=== PATIENT | female | born 1980 ===

== ENCOUNTER 2017-08-26 07:04 | Day surgery (SDC) | payer OTHER ==
[2016-07-11 21:42] VITALS: BMI 24.7
[2017-08-26] MEDS ORDERED: ceFAZolin IV 1 gm in Dextrose 1 GM/50 ML BAG IVPB ONE (07:17)
[2017-08-26] MEDS ORDERED: Morphine 10 mg/5 ml Oral Soln PO PRN (08:41)
[2017-08-26] MEDS ORDERED: Dextrose 5%/0.45% NS 1,000 ML IV SCH (08:45)
[2017-08-26] MEDS ORDERED: Succinylcholine Chloride 20 mg/ml Syr (5 ml) IV ONE (09:45)
[2017-08-26] MEDS ORDERED: Propofol 10 mg/ml Inj (20 ML) ONE (09:45)
[2017-08-26] MEDS ORDERED: HYDROmorphone 0.5 mg/0.5 ml ISec IVP PRN (10:12)
[2017-08-26] MEDS ORDERED: Lactated Ringer's 1,000 ML IV SCH (10:15)
[2017-08-26 12:16] VITALS: RESP 16; TEMP 97.3
[2017-08-26 13:13] VITALS: BP 108/68; PULSE 94; O2SAT 97
--- NOTE | 2017-09-02 23:09 | OP ---
PROCEDURE DATE: 08/26/2017 PREOPERATIVE DIAGNOSIS: Chronic tonsillitis. POSTOPERATIVE DIAGNOSIS: Chronic tonsillitis. PROCEDURE: Tonsillectomy. SIGNIFICANT FINDINGS: 2+ tonsils. DESCRIPTION OF PROCEDURE: The patient was brought into the room and placed in a supine position. Anesthesia was initiated through an ET tube. The patient was draped in the usual manner. Mouth gag was placed in the oral cavity, opened and suspended on the [employer] senior storage engineer the usual manner. Right tonsil was grabbed and pulled medially. Incision was made in the anterior tonsillar pillar using plasma knife. Dissections were done between tonsil and tonsillar fossa using plasma knife until the tonsil was removed. Bleeding was controlled using plasma knife. Next, the other tonsil was grabbed and pulled medially, incision was made in the anterior tonsillar pillar using a plasma knife. Dissection was done between tonsil and tonsillar fossa using plasma knife until the tonsil was removed. Bleeding was controlled using plasma knife. Both tonsillar beds were rubbed vigorously with plasma knife wand. No bleeding was noted. Mouth gag was let down for 30 seconds and put back up, no bleeding was noted. Mouth gag was taken down and removed. The patient was taken off anesthesia and taken to the recovery room in stable manner. Kishor Tracy MD
== END 2017-08-26 13:03 | disposition home or self-care (01) ==
LOC: C.SDS 07:04
PROVIDERS: ATTEND Otolaryngology
DX: J35.01 Chronic tonsillitis (principal)
CPT/HCPCS: 42826; 88304; J0690; J1100; J1170; J2405; J2704; J3010; J7040

== ENCOUNTER 2017-10-31 09:02 | Emergency (ER) | payer OTHER ==
[2017-10-31 09:02] VITALS: BMI 24.7
[2017-10-31] MEDS ORDERED: Lidocaine 5% Patch TD STA (09:51)
[2017-10-31] MEDS ORDERED: Lidocaine 5% Patch TD ONE (10:03)
--- NOTE | 2017-10-31 10:29 | RAD ---
PROCEDURE: Radiographs of the left elbow. HISTORY: Fall COMPARISON: No prior. FINDINGS: BONES: Bone alignment and mineralization are normal. No acute fracture. JOINTS: Normal. SOFT TISSUES: Normal. JOINT EFFUSION: None. OTHER FINDINGS: None IMPRESSION: No acute fracture or dislocation.
--- NOTE | 2017-10-31 10:52 | C.PDOC ---
History Of Present Illness 37 year old female presents to the ED c/o pain to B/L lower back, left elbow and right thigh. Patient reports that she slipped on a wet patch at work which caused her to fall down some stairs. Patient denies headache, neck stiffness, neck pain, nausea, vomit, diarrhea, LOC, weakness, numbness, urinary/bowel incontinence, saddle anesthesia. Time Seen by Provider: 10/31/17 09:38 Chief Complaint (Nursing): Back Pain History Per: Patient History/Exam Limitations: no limitations Onset/Duration Of Symptoms: Days Current Symptoms Are (Timing): Still Present Quality Of Discomfort: "Pain" Exacerbating Factor(s): Movement Recent travel outside of the [place]: No Additional History Per: Patient Past Medical History Reviewed: Historical Data, Nursing Documentation, Vital Signs Vital Signs: Last Vital Signs Temp 97.9 F 10/31/17 12:23 Pulse 65 10/31/17 12:23 Resp 18 10/31/17 12:23 BP 93/60 L 10/31/17 12:23 Pulse Ox 99 10/31/17 13:10 - Medical History PMH: No Chronic Diseases Surgical History: Cholecystectomy - [facility] Procedures ARTIF RUPT MEMBRANES NEC (07/20/13) BILAT TUBAL DIVISION NEC (07/20/13) MONITORING NOS (07/20/13) LOW CERVICAL (07/20/13) OTH LYSIS-PERITONEAL ADHES (07/20/13) Family History: States: Unknown Family Hx - Social History Hx Tobacco Use: No Hx Alcohol Use: No Hx Substance Use: No - Immunization History Hx Tetanus Toxoid Vaccination: No Hx Influenza Vaccination: No Hx Pneumococcal Vaccination: No Review Of Systems Constitutional: Negative for: Fever, Chills Respiratory: Negative for: Shortness of Breath Gastrointestinal: Negative for: Nausea, Vomiting Musculoskeletal: Positive for: Arm Pain, Back Pain, Leg Pain. Negative for: Neck Pain Skin: Negative for: Rash Neurological: Negative for: Headache Physical Exam - Physical Exam Appears: Non-toxic, No Acute Distress Skin: Normal Color, Warm, Dry Head: Atraumatic, Normacephalic Eye(s): bilateral: Normal Inspection Nose: No Discharge Oral Mucosa: Moist Neck: Normal ROM, Supple Back: Paraspinal Tenderness (buttocks as well) Extremity: Normal ROM, Tenderness (left elbow), Capillary Refill (< 2 seconds), Other (Bruise on right thigh) Pulses: Left Radial: Normal, Right Radial: Normal, Left Dorsalis Pedis: Normal, Right Dorsalis Pedis: Normal Neurological/Psych: Oriented x3, Normal Speech, Normal Motor, Normal Sensation Gait: Steady ED Course And Treatment O2 Sat by Pulse Oximetry: 99 (ON RA) Pulse Ox Interpretation: Normal - Other Rad Left elbow X-Ray X-Ray: Viewed By Me, Read By Radiologist Interpretation: PROCEDURE: Radiographs of the left elbow. HISTORY: Fall. COMPARISON: No prior. FINDINGS: BONES: Bone alignment and mineralization are normal. No acute fracture. JOINTS: Normal. SOFT TISSUES: Normal. JOINT EFFUSION: None. OTHER FINDINGS: None. IMPRESSION: No acute fracture or dislocation. Medical Decision Making Medical Decision Making: Impression: pain to lower back, left elbow and right high s/p fall Plan: * Tylenol 975 mg PO * Motrin 400 mg PO * Valium 5 mg PO * Lidoderm 1 ea TD * Left elbow X-Ray X-Ray showed no fracture or dislocation. Patient will be applied an ajay wrap on her left elbow. Patient reports she fell drowsy and will stay in the ED until she feel a little better. Disposition Counseled Patient/Family Regarding: Studies Performed, Diagnosis, Need For Followup, Rx Given - Disposition Referrals: [facility] [Outside] Disposition: HOME/ ROUTINE Disposition Time: 14:20 Condition: STABLE Prescriptions: Ibuprofen [Motrin] 600 mg PO TID #15 tab traMADol/Acetaminophen [Ultracet 37.5/325 mg] 1 tab PO TID PRN #15 tab PRN Reason: pain Forms: Gen Discharge Inst Citizen [place], [facility] (Citizen Of [place]), Work Excuse - POA Present On Arrival: None - Clinical Impression Clinical Impression: Contusion of back, Elbow strain - Scribe Statement The provider has reviewed the documentation as recorded by the Scribe Tawanda Hdez All medical record entries made by the Scribe were at my direction and personally dictated by me. I have reviewed the chart and agree that the record accurately reflects my personal performance of the history, physical exam, medical decision making, and the department course for this patient. I have also personally directed, reviewed, and agree with the discharge instructions and disposition.
[2017-10-31 11:04] VITALS: TEMP 97.9
[2017-10-31 12:24] VITALS: BP 93/60; PULSE 65; RESP 18
[2017-10-31 13:09] VITALS: O2SAT 99
== END 2017-10-31 14:55 | disposition home or self-care (01) ==
LOC: C.ER 09:02
DX: S30.0XXA Contusion of lower back and pelvis, initial encounter (principal); S56.912A Strain of unspecified muscles, fascia and tendons at forearm level, left arm, initial encounter; W10.9XXA Fall (on) (from) unspecified stairs and steps, initial encounter; Y92.89 Other specified places as the place of occurrence of the external cause; Y99.0 Civilian activity done for income or pay

== ENCOUNTER 2017-11-03 09:11 | Emergency (ER) | payer OTHER ==
[2017-11-03 09:11] VITALS: BMI 24.7
[2017-11-03 09:24] VITALS: BP 110/72; PULSE 73; RESP 20; TEMP 98; O2SAT 100
--- NOTE | 2017-11-03 11:56 | C.PDOC ---
History Of Present Illness 37 y/o female presents to the ER complaining of lower back pain which has been present for the past 3 days. Patient states that she slipped and fell down the stair on her buttocks while she was at work. Patient reports that she went to [facility] for left elbow pain and she had a an X-Ray (left elbow) which shows no fracture. She was discharged with prescriptions for Motrin and Tramadol. She still feels pain in the thoracic and upper lumbar region and the pain radiates to the right leg. The pain is worse when she is lying down. She denies having fever, chills, abdominal pain, hematuria, and dysuria. Time Seen by Provider: 11/03/17 09:51 Chief Complaint (Nursing): Back Pain History Per: Patient History/Exam Limitations: no limitations Onset/Duration Of Symptoms: Days Current Symptoms Are (Timing): Still Present Severity: Moderate Past Medical History Reviewed: Historical Data, Nursing Documentation, Vital Signs Vital Signs: Last Vital Signs Temp 98 F 11/03/17 09:22 Pulse 73 11/03/17 09:22 Resp 20 11/03/17 09:22 BP 110/72 11/03/17 09:22 Pulse Ox 100 11/03/17 15:44 - Medical History PMH: No Chronic Diseases Surgical History: Cholecystectomy - [facility] Procedures ARTIF RUPT MEMBRANES NEC (07/20/13) BILAT TUBAL DIVISION NEC (07/20/13) MONITORING NOS (07/20/13) LOW CERVICAL (07/20/13) OTH LYSIS-PERITONEAL ADHES (07/20/13) Family History: States: No Known Family Hx - Social History Hx Tobacco Use: No Hx Alcohol Use: No Hx Substance Use: No - Immunization History Hx Tetanus Toxoid Vaccination: No Hx Influenza Vaccination: No Hx Pneumococcal Vaccination: No Review Of Systems Except As Marked, All Systems Reviewed And Found Negative. Constitutional: Negative for: Fever, Chills Gastrointestinal: Negative for: Abdominal Pain Genitourinary: Negative for: Dysuria, Hematuria Musculoskeletal: Positive for: Back Pain, Leg Pain Physical Exam - Physical Exam Appears: Non-toxic, No Acute Distress Skin: Normal Color, Warm Head: Atraumatic, Normacephalic Eye(s): bilateral: Normal Inspection Nose: Normal Oral Mucosa: Moist Neck: Supple Chest: Symmetrical Cardiovascular: Rhythm Regular Respiratory: Normal Breath Sounds, No Rales, No Rhonchi, No Wheezing Back: Other (tenderness to lower thoracic region) Extremity: Normal ROM, No Tenderness, No Swelling Neurological/Psych: Oriented x3, Normal Speech ED Course And Treatment O2 Sat by Pulse Oximetry: 100 (RA) Pulse Ox Interpretation: Normal Medical Decision Making Medical Decision Making: Plan: --X-Ray- Thoracic Spine --X-Ray - Lumbar Spine --Valium PO --Tylenol PO --Motrin PO --Tramdol PO --Lidoderm Patch Updates: On re-evaluation, patient feels better. Patient has been discharged and told to follow up with PMD. Disposition - Disposition Disposition: HOME/ ROUTINE Disposition Time: 11:55 Condition: STABLE Additional Instructions: Follow up with your doctor Prescriptions: Ibuprofen [Motrin] 600 mg PO TID #15 tab traMADol/Acetaminophen [Ultracet 37.5/325 mg] 1 tab PO TID PRN #15 tab PRN Reason: pain Instructions: Low Back Pain (DC) Forms: Gen Discharge Inst [place], [facility] ([place]), Work Excuse - POA Present On Arrival: None - Clinical Impression Clinical Impression: Low back pain, Contusion of back - Scribe Statement The provider has reviewed the documentation as recorded by the Nakia Ayala Provider Attestation: All medical record entries made by the Nakia were at my direction and personally dictated by me. I have reviewed the chart and agree that the record accurately reflects my personal performance of the history, physical exam, medical decision making, and the department course for this patient. I have also personally directed, reviewed, and agree with the discharge instructions and disposition.
--- NOTE | 2017-11-03 16:49 | RAD ---
PROCEDURE: Radiographs of the Lumbar Spine. HISTORY: fall COMPARISON: No prior. FINDINGS: BONES: Normal alignment. No listhesis. No fracture. T12 anterior inferior vertebral body sclerosis nonspecific -some sclerotic osteophytosis here a chondral sclerosis on degenerative basis is compatible with this. Patient's relative young age is noted -incidental concomitant bone island here not excluded. The transverse process ease of L5 displaced mild transitional developmental variant appearances DISC SPACES: Unremarkable. OTHER FINDINGS: Charanjit IMPRESSION: No acute fracture or lytic lesion. Chronic sclerotic changes and minimal spondylosis at the anterior inferior T12 level. Right upper quadrant cholecystectomy clips Stool retention.
--- NOTE | 2017-11-03 16:50 | RAD ---
HISTORY: fall, multiple trips to the ED COMPARISON: No prior. FINDINGS: BONES: Alignment maintained. No fracture. Minimal mid thoracic spondylotic changes. Please note the lumbar spine report for findings referenced in the T12 anterior inferior vertebral body appearance DISC SPACES: Normal. SOFT TISSUES: Normal. OTHER FINDINGS: None. IMPRESSION: Spondylotic changes. No fracture or lytic lesion appreciated T12 incidental probably benign appearing concomitant sclerotic focus
== END 2017-11-03 12:05 | disposition home or self-care (01) ==
LOC: C.ER 09:11
DX: M54.5 Low back pain (principal); S30.0XXD Contusion of lower back and pelvis, subsequent encounter; W10.9XXD Fall (on) (from) unspecified stairs and steps, subsequent encounter